=== PATIENT | male | born 1985 | race Caucasian/White ===

== ENCOUNTER 2017-06-24 09:52 | Emergency (ER) | payer OTHER ==
[~2017-06-24] VITALS: Ht 180.3 cm; Wt 79.4 kg
[2017-06-24] MEDS ORDERED: ALBUTEROL0.63 MG/3 (11:01)
[2017-06-24] MEDS ORDERED: PRILOSEC OTC20 MG (11:02)
[2017-06-24] MEDS ORDERED: PREDNISONE 20 MG TAB PO ONE (12:30)
[2017-06-24] MEDS ORDERED: AMPICILLIN SOD/SULBACTAM 3GM 100 ML IV ONE (12:30)
[2017-06-24] MEDS ORDERED: AUGMENTIN 875-1 EACH PO (14:29)
[2017-06-24] MEDS ORDERED: PREDNISONE20 MG PO (14:30)
[2017-06-24 15:47] VITALS: BP 120/66
== END 2017-06-24 15:45 | disposition home or self-care (01) ==
LOC: FSED 09:52
DX: R68.84 Jaw pain (principal); R05 Cough; K11.21 Acute sialoadenitis
CPT/HCPCS: 99282; J0295